=== PATIENT | female | born 1960 | race Caucasian/White ===

== ENCOUNTER 2021-05-19 07:14 | Day surgery (SDC) | payer BC, SELFPAY ==
[2021-05-18 09:43] LABS: BASOPHILS % (AUTO) 0.4 % (0.0-2.0); EOSINOPHILS # (AUTO) 0.1 K/uL (0.0-0.4); EOSINOPHILS % (AUTO) 2.9 % (0.0-4.0); HEMATOCRIT 39.3 % (36-48); HEMOGLOBIN 13.2 g/dL (12.0-16.0); LYMPHOCYTES # (AUTO) 0.8 K/uL (1.0-5.5); MEAN CORPUSCULAR HEMOGLOBIN 29 pg (27-31); MEAN CORPUSCULAR HGB CONC 34 % (32-36); MEAN CORPUSCULAR VOLUME 86 fL (79.0-98.0); MONOCYTES # (AUTO) 0.4 K/uL (0.0-1.0); MONOCYTES % (AUTO) 10.2 % (1.7-9.3); NEUTROPHILS % (AUTO) 67.5 % (40.0-70.0); PLATELET COUNT (AUTO) 159 K/uL (130-430); RED BLOOD CELL COUNT(AUTO) 4.56 MIL/uL (4.2-6.2); RED CELL DISTRIBUTION WIDTH 14.3 % (9.0-15.0); WHITE BLOOD COUNT (AUTO) 4.4 K/uL (4.8-10.8)
[2021-05-18 09:58] LABS: ALBUMIN 3.8 g/dL (3.4-4.8); CREATININE 0.91 mg/dL (0.55-1.30); POTASSIUM 4.1 mmol/L (3.5-5.1); TOTAL BILIRUBIN 0.8 mg/dL (0.0-1.0)
[2021-05-18 10:02] LABS: PROTHROMBIN TIME 9.9 SECS (9.5-12.5)
[2021-05-18 10:08] LABS: BILIRUBIN,URINE NEGATIVE (NEGATIVE); CLARITY/URINE CLEAR (CLEAR); COLOR,URINE YELLOW (YELLOW); GLUCOSE,URINE NEGATIVE (NEGATIVE); KETONES,URINE NEGATIVE (NEGATIVE); LEUKOCYTE ESTERASE ,URINE NEGATIVE (NEGATIVE); NITRITE, URINE NEGATIVE (NEGATIVE); PROTEIN URINE NEGATIVE (NEGATIVE); UROBILINOGEN,URINE 0.2 (0.2-1.0)
[2021-05-18 10:54] LABS: BLOOD, URINE TRACE (NEGATIVE)
[2021-05-18 10:58] LABS: BACTERIA,URINE RARE /HPF (None Seen); MUCUS,URINE 1+ /LPF (None Seen); WBC,URINE 0-3 /HPF (0-3)
[~2021-05-19] VITALS: Ht 160 cm; Wt 68.9 kg
[~2021-05-19 07:14] MED LIST: LEVOFLOXACIN IN DEXTROSE 5 % 100 ML IV ONE; metroNIDAZOLE 500 mg/NS 100 ML PREMIX IV SCH
[2021-05-19] MEDS ORDERED: NS IRRIG SOLN 1000 ML IR ONE (09:08)
[2021-05-19] MEDS ORDERED: DEXAMETHASONE SOD PHOSPHATE 4 MG/ML VIAL IVP ONE (09:08)
[2021-05-19] MEDS ORDERED: PHENYLEPHRINE HCL 10 MG/ML VIAL (NEOSYNEPHRINE) IV ONE (09:08)
[2021-05-19] MEDS ORDERED: SEVOFLURANE 15 MIN GAS INH ONE (09:08)
[2021-05-19] MEDS ORDERED: WATER FOR IRRIGATION,STERILE 3,000 ML IRRIG.SOLN IR ONE (09:08)
[2021-05-19] MEDS ORDERED: metroNIDAZOLE 500 mg/NS 100 mL IVPB IV ONE (09:08)
[2021-05-19] MEDS ORDERED: NS 1000 ML IV.SOLN IV ONE (09:08)
[2021-05-19] MEDS ORDERED: fentaNYL CITRATE/PF 100 MCG/2 ML AMP IVP ONE (09:08)
[2021-05-19] MEDS ORDERED: MIDAZOLAM HCL 5 MG/5 ML VIAL IVP ONE (09:08)
[2021-05-19] MEDS ORDERED: PROPOFOL 200MG/ 20ML VIAL (DIPRIVAN) IV ONE (09:08)
[2021-05-19] MEDS ORDERED: POTASSIUM IODIDE/IODINE 14 ML SOLUTION (LUGOL'S) TP ONE (09:08)
[2021-05-19] MEDS ORDERED: LR 1,000 ML IV.SOLN IV ONE (09:08)
[2021-05-19] MEDS ORDERED: METOCLOPRAMIDE HCL 10 MG/2 ML VIAL IVP PRN (10:00)
[2021-05-19] MEDS ORDERED: ONDANSETRON HCL 4 MG/2 ML VIAL IVP PRN ×2 (10:00→10:30)
[2021-05-19] MEDS ORDERED: MORPHINE 4 MG INJ. 4 MG/ML VIAL IVP PRN ×2 (10:00)
[2021-05-19] MEDS ORDERED: HYDROmorphone 1 MG/ML INJ. CARTRIDGE IVP PRN (10:00)
[2021-05-19] MEDS ORDERED: HYDROcodone/ACETAMIN 5-325 MG TAB (NORCO/ VICODIN) PO PRN ×2 (10:30)
[2021-05-19 11:34] VITALS: BP_SYST 142
== END 2021-05-19 12:10 | disposition home or self-care (01) ==
LOC: SDS 07:14 → SMU 07:15 → SDS 12:10
PROVIDERS: ATTEND Obstetrics & Gynecology Gynecology
DX: R87.619 Unspecified abnormal cytological findings in specimens from cervix uteri (principal); R87.810 Cervical high risk human papillomavirus (HPV) DNA test positive; I10 Essential (primary) hypertension; J45.909 Unspecified asthma, uncomplicated; M19.90 Unspecified osteoarthritis, unspecified site; Z88.0 Allergy status to penicillin; Z79.01 Long term (current) use of anticoagulants; Z79.899 Other long term (current) drug therapy; Z20.822 Contact with and (suspected) exposure to COVID-19
CPT/HCPCS: 36415; 57520; 71046; 80053; 81000; 85025; 85610; 85730; 86886; 86900; 86901; 87086; 88305; 88307; 88341; 88342; J1100; J1956; J2250; J2370; J2704; J3010; J3490; J7030; J7120; U0003; U0005